=== PATIENT | female | born 1985 | race Caucasian/White ===

== ENCOUNTER 2016-09-28 18:04 | Emergency (ER) | payer OTHER ==
[~2016-09-28] VITALS: Ht 160 cm; Wt 91.0 kg
[2016-09-28 18:40] LABS: ADD MIUA? YES; BILIRUBIN NEGATIVE; BLOOD NEGATIVE; COLOR AMBER ((YELLOW)); GLUCOSE (STRIP) NEGATIVE; KETONES 5; LEUKOCYTES SMALL; NITRITE NEGATIVE; PROTEIN (STRIP) 30; SPECIFIC GRAVITY 1.026 (1.000-1.030)
[2016-09-28 19:08] LABS: AMORPHOUS PHOSPHATE CRYSTALS 1+; BACTERIA 1+ /HPF; CALCIUM OXALATE CRYSTALS 1+ /HPF; CRYSTALS PRESENT; EPITHELIAL CELLS 1+ /HPF; MUCUS 2+ /LPF; RED BLOOD CELLS 0-5 /HPF (0-5); WHITE BLOOD CELLS 0-5 /HPF (0-5)
[2016-09-28] MEDS ORDERED: FLEXERIL5 MG PO (20:08)
[2016-09-28] MEDS ORDERED: NORCO 5/3251 TABLET PO (20:08)
[2016-09-28 20:31] VITALS: BP 117/71
== END 2016-09-28 20:34 | disposition home or self-care (01) ==
LOC: EME 18:04
PROVIDERS: Physician Assistant
DX: O9A.212 Injury, poisoning and certain other consequences of external causes complicating pregnancy, second trimester (principal); S39.012A Strain of muscle, fascia and tendon of lower back, initial encounter; Z3A.21 21 weeks gestation of pregnancy; F17.200 Nicotine dependence, unspecified, uncomplicated
CPT/HCPCS: 76770; 81003; 99281; 99284; J3010

== ENCOUNTER 2016-10-16 19:21 | Emergency (ER) | payer OTHER ==
[~2016-10-16] VITALS: Ht 160 cm; Wt 92.6 kg
[~2016-10-16 19:21] MED LIST: FLEXERIL5 MG PO; NORCO 5/3251 TABLET PO
[2016-10-16 20:04] LABS: ADD MIUA? YES; BILIRUBIN NEGATIVE; BLOOD NEGATIVE; COLOR YELLOW ((YELLOW)); GLUCOSE (STRIP) NEGATIVE; KETONES 20; LEUKOCYTES NEGATIVE; NITRITE NEGATIVE; PROTEIN (STRIP) 30; SPECIFIC GRAVITY 1.017 (1.000-1.030); UROBILINOGEN 0.2 MG/DL (0.2-1.0)
[2016-10-16 20:11] LABS: BACTERIA RARE /HPF; EPITHELIAL CELLS 1+ /HPF; MUCUS 2+ /LPF; RED BLOOD CELLS NONE SEEN /HPF (0-5); UCUL ADDED? NO; WHITE BLOOD CELLS 0-5 /HPF (0-5)
[2016-10-16 22:02] LABS: HEMATOCRIT 39.7 % (36.0-46.0); MCH 30.6 PG (29.0-34.0); MCHC 33.5 G/DL (30.0-36.0); MCV 91.5 FL (83-99); MEAN PLAT.VOLUME 9.2 uM^3 (9.5-12.4); PLATELET COUNT 215 K/uL (156-360); RBC DIS.WIDTH-CV 12.8 % (11.8-14.6); RBC DIS.WIDTH-SD 41.7 % (39-53); RED BLOOD COUNT 4.34 M/uL (3.80-5.20); WHITE BLOOD COUNT 16.3 K/uL (4.1-10.2)
[2016-10-16 22:11] LABS: CHLORIDE 107 mEq/L (99-109); POTASSIUM 3.7 mEq/L (3.7-5.4); SODIUM 137 mEq/L (136-147)
[2016-10-16 22:13] LABS: GLUCOSE 77 mg/dL (70-99)
[2016-10-16 22:14] LABS: ANION GAP 9 MEQ/L (2-14)
[2016-10-16 22:17] LABS: GFR ESTIMATE (CALCULATED) > 59 mL/min/
[2016-10-16 22:18] LABS: UREA NITROGEN (BUN) 4 mg/dL (9-23)
[2016-10-16 22:44] LABS: QUANTITATIVE HCG 16678.8 MIU/ML
[2016-10-16 23:00] VITALS: BP 115/62
== END 2016-10-16 23:01 | disposition home or self-care (01) ==
LOC: EME 19:21
PROVIDERS: Physician Assistant
DX: O26.92 Pregnancy related conditions, unspecified, second trimester (principal); R11.2 Nausea with vomiting, unspecified; O99.332 Smoking (tobacco) complicating pregnancy, second trimester; R19.7 Diarrhea, unspecified; Z3A.23 23 weeks gestation of pregnancy; R51 Headache
CPT/HCPCS: 80048; 81003; 84702; 85027; 99281; 99284; J2405; J7030

== ENCOUNTER 2016-11-12 10:51 | Emergency (ER) | payer OTHER ==
[~2016-11-12] VITALS: Ht 157.5 cm; Wt 93.2 kg
[2016-11-12 11:58] LABS: HEMATOCRIT 40.2 % (36.0-46.0); MCH 30.7 PG (29.0-34.0); MCHC 33.8 G/DL (30.0-36.0); MCV 90.7 FL (83-99); MEAN PLAT.VOLUME 9.6 uM^3 (9.5-12.4); PLATELET COUNT 221 K/uL (156-360); RBC DIS.WIDTH-CV 13.1 % (11.8-14.6); RBC DIS.WIDTH-SD 43.1 % (39-53); RED BLOOD COUNT 4.43 M/uL (3.80-5.20); WHITE BLOOD COUNT 17.7 K/uL (4.1-10.2)
[2016-11-12 12:15] LABS: CHLORIDE 106 mEq/L (99-109); POTASSIUM 3.7 mEq/L (3.7-5.4); SODIUM 138 mEq/L (136-147)
[2016-11-12 12:17] LABS: GLUCOSE 76 mg/dL (70-99)
[2016-11-12 12:18] LABS: ANION GAP 10 MEQ/L (2-14)
[2016-11-12 12:20] VITALS: BP 118/61
[2016-11-12 12:21] LABS: GFR ESTIMATE (CALCULATED) > 59 mL/min/
[2016-11-12 12:22] LABS: UREA NITROGEN (BUN) 5 mg/dL (9-23)
[2016-11-12 12:43] LABS: AMPHETAMINE NEGATIVE (500 ng/mL); BARBITURATES NEGATIVE (200 ng/mL); BENZODIAZEPINES NEGATIVE (150 ng/mL); COCAINE NEGATIVE (150 ng/mL); INTERNAL CONTROLS VALID? YES; METHADONE NEGATIVE (200 ng/mL); METHAMPHETAMINE NEGATIVE (500 ng/mL); OPIATES (MORPHINE) NEGATIVE (100 ng/mL); OXYCODONE NEGATIVE (100 ng/mL); PHENCYCLIDINE NEGATIVE (25 ng/mL); PROPOXYPHENE NEGATIVE (300 ng/mL); THC CANNABINOIDS NEGATIVE (50 ng/mL); TRICYCLIC ANTIDEPRESSANTS NEGATIVE (300 ng/mL)
== END 2016-11-12 12:44 | disposition home or self-care (01) ==
LOC: EME 10:51
PROVIDERS: Emergency Medicine
DX: O99.342 Other mental disorders complicating pregnancy, second trimester (principal); F31.9 Bipolar disorder, unspecified; O99.332 Smoking (tobacco) complicating pregnancy, second trimester; F17.200 Nicotine dependence, unspecified, uncomplicated
CPT/HCPCS: 80048; 85027; 90837; 99281; 99285

== ENCOUNTER 2016-11-16 20:11 | Outpatient (CLI) | payer OTHER ==
[2016-11-16 20:31] VITALS: BP 120/61
== END 2016-11-16 22:25 | disposition home or self-care (01) ==
LOC: LDRP-OP 20:11 → 2WEST 20:13 → LDRP-OP 03-11 16:37
DX: O26.893 Other specified pregnancy related conditions, third trimester (principal); G25.81 Restless legs syndrome; O99.333 Smoking (tobacco) complicating pregnancy, third trimester; F17.210 Nicotine dependence, cigarettes, uncomplicated; O99.343 Other mental disorders complicating pregnancy, third trimester; Z3A.28 28 weeks gestation of pregnancy; F31.9 Bipolar disorder, unspecified
CPT/HCPCS: 59025; 82731; 87086; G0378

== ENCOUNTER 2017-02-01 00:04 | Outpatient (CLI) | payer OTHER ==
[~2017-02-01] VITALS: Ht 157.5 cm; Wt 98.0 kg
[2017-02-01 00:30] VITALS: BP 125/73
[2017-02-01] MEDS ORDERED: PRENATAL TABLE1 EAC3 PO (01:23)
== END 2017-02-01 01:45 | disposition home or self-care (01) ==
LOC: LDRP-OP 00:04 → 2WEST 00:05 → LDRP-OP 03-11 23:14
DX: O47.1 False labor at or after 37 completed weeks of gestation (principal); Z3A.39 39 weeks gestation of pregnancy
CPT/HCPCS: 59025; G0378; Q0177

== ENCOUNTER 2017-02-06 07:46 | Inpatient (IN) | payer OTHER ==
[2017-02-06] VITALS (26 sets, daily range): BP systolic 108–139; BP diastolic 59–87
[~2017-02-06] VITALS: Ht 157.5 cm; Wt 98.4 kg
[~2017-02-06 07:46] MED LIST changes: +PRENATAL TABLE1 EAC3 PO
[2017-02-06 10:49] LABS: EOSINOPHIL (%) 0.3 % (0-5); EOSINOPHIL COUNT 0.1 K/uL (0-0.3); HEMATOCRIT 40.5 % (36.0-46.0); IMMATURE GRANULOCYTE (%) 1.3 % (0.0-0.7); IMMATURE GRANULOCYTE COUNT 0.2 K/uL; INSTRUMENT ABS NEUTROPHIL CT 11.7 K/uL; LYMPHOCYTE COUNT 1.5 K/uL (1.0-2.8); MCHC 34.6 G/DL (30.0-36.0); MCV 89.8 FL (83-99); MEAN PLAT.VOLUME 10.2 uM^3 (9.5-12.4); MONOCYTE (%) 6.3 % (3-12); MONOCYTE COUNT 0.9 K/uL (0-0.8); NEUTROPHIL (%) 81.5 % (45-76); NEUTROPHIL COUNT 11.7 K/uL (1.8-6.4); PLATELET COUNT 192 K/uL (156-360); RBC DIS.WIDTH-CV 13.2 % (11.8-14.6); RBC DIS.WIDTH-SD 43.5 % (39-53); RED BLOOD COUNT 4.51 M/uL (3.80-5.20); WHITE BLOOD COUNT 14.4 K/uL (4.1-10.2)
[2017-02-07 05:44] LABS: EOSINOPHIL (%) 0.4 % (0-5); EOSINOPHIL COUNT 0.1 K/uL (0-0.3); HEMATOCRIT 37.7 % (36.0-46.0); IMMATURE GRANULOCYTE (%) 0.9 % (0.0-0.7); IMMATURE GRANULOCYTE COUNT 0.1 K/uL; INSTRUMENT ABS NEUTROPHIL CT 11.6 K/uL; LYMPHOCYTE COUNT 1.6 K/uL (1.0-2.8); MCH 31.5 PG (29.0-34.0); MCHC 34.5 G/DL (30.0-36.0); MCV 91.3 FL (83-99); MEAN PLAT.VOLUME 10.1 uM^3 (9.5-12.4); MONOCYTE (%) 5.8 % (3-12); MONOCYTE COUNT 0.8 K/uL (0-0.8); NEUTROPHIL (%) 81.8 % (45-76); NEUTROPHIL COUNT 11.6 K/uL (1.8-6.4); PLATELET COUNT 163 K/uL (156-360); RBC DIS.WIDTH-CV 13.4 % (11.8-14.6); RBC DIS.WIDTH-SD 44.8 % (39-53); RED BLOOD COUNT 4.13 M/uL (3.80-5.20); WHITE BLOOD COUNT 14.3 K/uL (4.1-10.2)
[2017-02-07 16:30] VITALS: BP 116/70
[2017-02-08 08:00] VITALS: BP 115/75
[2017-02-08] MEDS ORDERED: BREAST PUMP MC (12:03)
== END 2017-02-08 12:34 | disposition home or self-care (01) | DRG 775 ==
LOC: LDRP-OP 07:46 → 2WEST 07:47 → LDRP-OP 11:22 → 2WEST 19:17 → LDRP-OP 03-11 01:55
PROVIDERS: Advanced Practice Midwife; Obstetrics & Gynecology
DX: O71.4 Obstetric high vaginal laceration alone (principal); O26.893 Other specified pregnancy related conditions, third trimester; O99.824 Streptococcus B carrier state complicating childbirth; O99.214 Obesity complicating childbirth; E66.9 Obesity, unspecified; Z68.32 Body mass index [BMI] 32.0-32.9, adult; Z3A.39 39 weeks gestation of pregnancy; Z37.0 Single live birth; Z87.891 Personal history of nicotine dependence
CPT/HCPCS: 85025; 86850; 86900; 86901; C1755; J2540; J3010; J7120

== ENCOUNTER 2017-07-01 21:35 | Emergency (ER) | payer OTHER ==
[~2017-07-01] VITALS: Ht 157.5 cm; Wt 100.5 kg
[~2017-07-01 21:35] MED LIST changes: +BREAST PUMP MC
[2017-07-01 22:22] LABS: HEMATOCRIT 43.3 % (36.0-46.0); HEMOGLOBIN 14.7 G/DL (11.9-15.5); MCH 30.6 PG (29.0-34.0); MCHC 33.9 G/DL (30.0-36.0); MCV 90.2 FL (83-99); PLATELET COUNT 274 K/uL (156-360); RBC DIS.WIDTH-CV 12.2 % (11.8-14.6); RBC DIS.WIDTH-SD 40.1 % (39-53)
[2017-07-02 01:09] LABS: APPEARANCE CLOUDY ((CLEAR)); BILIRUBIN NEGATIVE; BLOOD LARGE; COLOR YELLOW ((YELLOW)); GLUCOSE (STRIP) NEGATIVE; KETONES NEGATIVE; LEUKOCYTES LARGE; NITRITE NEGATIVE; PROTEIN (STRIP) 30; SPECIFIC GRAVITY 1.026 (1.000-1.030); UROBILINOGEN 0.2 MG/DL (0.2-1.0)
[2017-07-02 01:36] LABS: RED BLOOD CELLS 40-50 /HPF (0-5)
[2017-07-02 01:37] LABS: BACTERIA 2+ /HPF; EPITHELIAL CELLS 2+ /HPF; MUCUS 1+ /LPF; UCUL ADDED? YES; WHITE BLOOD CELLS 15-20 /HPF (0-5)
[2017-07-02] MEDS ORDERED: KEFLEX500 MG PO (05:04)
[2017-07-02 05:33] VITALS: BP 135/79
== END 2017-07-02 05:34 | disposition home or self-care (01) ==
LOC: EME 21:35
DX: O99.89 Other specified diseases and conditions complicating pregnancy, childbirth and the puerperium (principal); M54.42 Lumbago with sciatica, left side; O23.41 Unspecified infection of urinary tract in pregnancy, first trimester; O99.331 Smoking (tobacco) complicating pregnancy, first trimester; F17.200 Nicotine dependence, unspecified, uncomplicated; Z3A.01 Less than 8 weeks gestation of pregnancy
CPT/HCPCS: 76801; 81003; 84702; 85027; 86900; 86901; 87086; 99281; 99285

== ENCOUNTER 2017-07-16 15:35 | Emergency (ER) | payer OTHER ==
[~2017-07-16] VITALS: Ht 157.5 cm; Wt 95.8 kg
[~2017-07-16 15:35] MED LIST changes: +KEFLEX500 MG PO
[2017-07-16 17:23] LABS: HEMATOCRIT 48.1 % (36.0-46.0); HEMOGLOBIN 16.2 G/DL (11.9-15.5); MCH 30.1 PG (29.0-34.0); MCHC 33.7 G/DL (30.0-36.0); MCV 89.2 FL (83-99); PLATELET COUNT 206 K/uL (156-360); RBC DIS.WIDTH-CV 11.9 % (11.8-14.6); RBC DIS.WIDTH-SD 39.4 % (39-53); RED BLOOD COUNT 5.39 M/uL (3.80-5.20); WHITE BLOOD COUNT 7.4 K/uL (4.1-10.2)
[2017-07-16 17:35] LABS: CHLORIDE 107 mEq/L (99-109); POTASSIUM 3.8 mEq/L (3.7-5.4); SODIUM 137 mEq/L (136-147)
[2017-07-16 17:37] LABS: GLUCOSE 83 mg/dL (70-99)
[2017-07-16 17:41] LABS: CREATININE 0.7 mg/dL (0.6-1.3); GFR ESTIMATE (CALCULATED) > 59 mL/min/
[2017-07-16 17:42] LABS: UREA NITROGEN (BUN) 15 mg/dL (9-23)
[2017-07-16 17:49] LABS: QUANTITATIVE HCG 12.1 MIU/ML
[2017-07-16 17:58] LABS: APPEARANCE CLOUDY ((CLEAR)); BILIRUBIN NEGATIVE; BLOOD MODERATE; COLOR AMBER ((YELLOW)); GLUCOSE (STRIP) NEGATIVE; KETONES NEGATIVE; LEUKOCYTES MODERATE; NITRITE NEGATIVE; PROTEIN (STRIP) 100; SPECIFIC GRAVITY 1.033 (1.000-1.030)
[2017-07-16 18:11] LABS: BACTERIA NONE SEEN /HPF; EPITHELIAL CELLS 3+ /HPF; MUCUS 4+ /LPF; UCUL ADDED? YES
[2017-07-16] MEDS ORDERED: ZOFRAN4 MG PO (20:46)
[2017-07-16 21:34] VITALS: BP 124/68
== END 2017-07-16 21:35 | disposition home or self-care (01) ==
LOC: EME 15:35
DX: R11.2 Nausea with vomiting, unspecified (principal); R19.7 Diarrhea, unspecified; F32.9 Major depressive disorder, single episode, unspecified; Z87.891 Personal history of nicotine dependence
CPT/HCPCS: 80048; 81003; 84702; 85027; 87086; 99281; 99283

== ENCOUNTER 2017-11-05 09:57 | Emergency (ER) | payer OTHER ==
[~2017-11-05] VITALS: Ht 157.5 cm; Wt 99.1 kg
[~2017-11-05 09:57] MED LIST changes: +ZOFRAN4 MG PO
[2017-11-05 10:37] LABS: HEMATOCRIT 43.7 % (36.0-46.0); HEMOGLOBIN 15.2 G/DL (11.9-15.5); MCH 30.8 PG (29.0-34.0); MCHC 34.8 G/DL (30.0-36.0); MCV 88.6 FL (83-99); PLATELET COUNT 239 K/uL (156-360); RBC DIS.WIDTH-CV 12.8 % (11.8-14.6); RBC DIS.WIDTH-SD 41.6 % (39-53); RED BLOOD COUNT 4.93 M/uL (3.80-5.20); WHITE BLOOD COUNT 10.8 K/uL (4.1-10.2)
[2017-11-05 10:51] LABS: APPEARANCE CLEAR ((CLEAR)); BILIRUBIN NEGATIVE; BLOOD MODERATE; COLOR AMBER ((YELLOW)); GLUCOSE (STRIP) NEGATIVE; KETONES NEGATIVE; LEUKOCYTES TRACE; NITRITE NEGATIVE; PROTEIN (STRIP) 100; SPECIFIC GRAVITY 1.032 (1.000-1.030)
[2017-11-05 11:17] LABS: EPITHELIAL CELLS 3+ /HPF; RED BLOOD CELLS RARE /HPF (0-5); WHITE BLOOD CELLS RARE /HPF (0-5)
[2017-11-05 11:18] LABS: BACTERIA 1+ /HPF; MUCUS 4+ /LPF; UCUL ADDED? NO
[2017-11-05 13:15] LABS: CHLORIDE 107 mEq/L (99-109); POTASSIUM 3.9 mEq/L (3.7-5.4); SODIUM 137 mEq/L (136-147)
[2017-11-05 13:17] LABS: GLUCOSE 108 mg/dL (70-99)
[2017-11-05 13:18] LABS: TOTAL PROTEIN 6.9 g/dL (6.4-8.3)
[2017-11-05 13:19] LABS: TOTAL BILIRUBIN 0.6 mg/dL (0.0-1.0)
[2017-11-05 13:21] LABS: ALKALINE PHOSPHATASE 74 IU/L (3-129); CREATININE 0.7 mg/dL (0.6-1.3); GFR ESTIMATE (CALCULATED) > 59 mL/min/
[2017-11-05 13:22] LABS: UREA NITROGEN (BUN) 9 mg/dL (9-23)
[2017-11-05 13:23] LABS: AST (GOT) 19 IU/L (2-34)
[2017-11-05 13:24] LABS: ALT (GPT) 27 IU/L (3-49)
[2017-11-05 13:34] VITALS: BP 125/69
== END 2017-11-05 13:35 | disposition home or self-care (01) ==
LOC: EME 09:57
DX: O20.0 Threatened abortion (principal); Z87.891 Personal history of nicotine dependence; Z3A.09 9 weeks gestation of pregnancy
CPT/HCPCS: 76801; 80053; 81003; 84702; 85027; 99281; 99285